=== PATIENT | female | born 1995 | race African-American/Black ===

== ENCOUNTER 2017-04-17 10:04 | Observation (INO) | payer MEDICAID, OTHER ==
[2017-04-17 07:56] VITALS: RESP 19; O2SAT 99
[2017-04-17] MEDS ORDERED: ACETAMINOPHEN 325 MG PO PRN (11:08)
[2017-04-17] MEDS ORDERED: SODIUM CHLORIDE 0.9% FLUSH 10 ML SOL IV PRN (11:21)
[2017-04-17] MEDS ORDERED: MEPIVACAINE HCL 1% MPF 30 ML SOL INFIL PRN (11:21)
[2017-04-17] MEDS ORDERED: LACTATED RINGERS 1,000 ML IV PRN (11:21)
[2017-04-17] MEDS ORDERED: OXYTOCIN 10000 MU/ML SOL IM PRN (11:21)
[2017-04-17] MEDS ORDERED: FENTANYL 100MCG/2ML SOL IV PRN (11:21)
[2017-04-17] MEDS ORDERED: METHYLERGONOVINE MALEATE 0.2 MG/ML SOL IM PRN (11:21)
[2017-04-17] MEDS ORDERED: CARBOPROST 250 MCG/ML SOL IM PRN (11:21)
[2017-04-17] MEDS ORDERED: SODIUM CHLORIDE 0.9% FLUSH 10 ML SOL IV SCH (11:30)
[2017-04-17 11:40] LABS: APPEARANCE,URINE Clear; BILIRUBIN,URINE NEGATIVE (NEGATIVE); COLOR,URINE Yellow; GLUCOSE, URINE (UA) NEGATIVE (NEGATIVE); KETONES,URINE NEGATIVE (NEGATIVE); LEUKOCYTE ESTERASE ,URINE NEGATIVE (NEGATIVE); NITRATE,URINE NEGATIVE (NEGATIVE); OCCULT BLOOD,URINE TRACE INTACT (NEG-TRACE); PH,URINE 5.5; UROBILINOGEN,URINE 0.2 (0.2-1.0 EU)
[2017-04-17 11:47] LABS: RBC,URINE 0-2 (0-3AV/HPF); WBC,URINE 0-2 (0-5AV/HPF)
[2017-04-17 14:28] VITALS: BP 117/71; PULSE 87; TEMP 97.8
== END 2017-04-17 15:10 | disposition home or self-care (01) ==
LOC: OB 10:04
PROVIDERS: ADMIT Family Medicine; ATTEND Family Medicine
DX: Z34.83 Encounter for supervision of other normal pregnancy, third trimester (principal); Z3A.38 38 weeks gestation of pregnancy
CPT/HCPCS: 51798; 59025; 81001

== ENCOUNTER 2017-04-29 04:50 | Inpatient (IN) | payer OTHER ==
[2017-04-29] MEDS ORDERED: MEPIVACAINE HCL 1% MPF 30 ML SOL INFIL PRN (07:02)
[2017-04-29] MEDS ORDERED: FENTANYL 100MCG/2ML SOL IV PRN (07:02)
[2017-04-29] MEDS ORDERED: LACTATED RINGERS 1,000 ML IV PRN (07:02)
[2017-04-29] MEDS ORDERED: METHYLERGONOVINE MALEATE 0.2 MG/ML SOL IM PRN (07:02)
[2017-04-29] MEDS ORDERED: CARBOPROST 250 MCG/ML SOL IM PRN (07:02)
[2017-04-29] MEDS ORDERED: SODIUM CHLORIDE 0.9% FLUSH 10 ML SOL IV PRN (07:02)
[2017-04-29] MEDS ORDERED: OXYTOCIN 10000 MU/ML SOL IM PRN (07:02)
[2017-04-29] MEDS: SODIUM CHLORIDE 0.9% FLUSH 10 ML SOL IV SCH ×3 (07:15→22:30)
[2017-04-29 07:49] LABS: BASOPHILS % (AUTO) 1 % (0-3); EOSINOPHILS % (AUTO) 1 % (0-9); HEMATOCRIT 32 % (35-47); MEAN CORPUSCULAR HGB CONC 35.2 gm/dl (32.0-36.0); MEAN CORPUSCULAR VOLUME 82 fL (81-99); MONOCYTES % (AUTO) 7.1 % (0-12); NEUTROPHILS % (AUTO) 68.9 % (37-80)
[2017-04-29] MEDS ORDERED: MORPHINE SULFATE 10 MG/ML SOL IV ONE (20:56)
[2017-04-29] MEDS ORDERED: MORPHINE SULFATE 10 MG/ML SOL IM ONE (20:58)
[2017-04-29] MEDS ORDERED: MORPHINE SULFATE 10 MG/ML SOL ONE ×2 (22:19→22:20)
[2017-04-30] MEDS: SODIUM CHLORIDE 0.9% FLUSH 10 ML SOL IV SCH ×3 (08:05→22:22)
[2017-04-30] MEDS ORDERED: TERBUTALINE SULFATE 1 MG/ML SOL SC PRN (08:42)
[2017-04-30] MEDS ORDERED: OXYTOCIN 10000 MU/ML SOL ONE (09:06)
[2017-04-30] MEDS ORDERED: LACTATED RINGERS 1,000 ML ONE (09:06)
[2017-04-30] MEDS: OXYTOCIN 10000 MU/ML 20,000 MU in LACTATED RINGERS 1,000 ML IV SCH (09:39)
[2017-04-30] MEDS: LACTATED RINGERS 1,000 ML IV SCH ×4 (09:41→18:33)
[2017-04-30] MEDS ORDERED: DIPHENHYDRAMINE 50 MG/ML SOL IV PRN (16:54)
[2017-04-30] MEDS ORDERED: EPHEDRINE SULFATE 50 MG/ML SOL IV PRN (16:54)
[2017-04-30] MEDS ORDERED: NALOXONE HYDROCHLORIDE 0.4 MG/ML SOL IV PRN (16:54)
[2017-04-30] MEDS ORDERED: NALBUPHINE HCL 20 MG/ML SOL IV PRN (16:54)
[2017-04-30] MEDS ORDERED: ROPIVACAINE HYDROCHLORIDE 5 MG/ML SOL ONE (17:15)
[2017-04-30] MEDS ORDERED: FENTANYL 250 MCG/ 5ML SOL ONE (17:15)
[2017-04-30] MEDS ORDERED: ONDANSETRON HCL 4 MG/2 ML SOL IV PRN (23:35)
[2017-05-01] MEDS: LACTATED RINGERS 1,000 ML IV SCH ×7 (02:04→21:21)
[2017-05-01] MEDS: SODIUM CHLORIDE 0.9% FLUSH 10 ML SOL IV SCH ×2 (07:25→19:49)
[2017-05-01] MEDS ORDERED: LACTATED RINGERS 1,000 ML ONE (10:06)
[2017-05-01] MEDS ORDERED: OXYTOCIN 10000 MU/ML SOL ONE ×2 (10:06→18:32)
[2017-05-01] MEDS: OXYTOCIN 10000 MU/ML 20,000 MU in LACTATED RINGERS 1,000 ML IV SCH (10:30)
[2017-05-01] MEDS ORDERED: FENTANYL 250 MCG/ 5ML SOL ONE (16:29)
[2017-05-01] MEDS ORDERED: ROPIVACAINE HYDROCHLORIDE 5 MG/ML SOL ONE (16:29)
[2017-05-01] MEDS ORDERED: LIDOCAINE HCL 2% MPF SOL ONE ×2 (17:12→18:21)
[2017-05-01] MEDS ORDERED: CEFAZOLIN SODIUM 1 GM PDS IVP ONE (17:14)
[2017-05-01] MEDS ORDERED: CITRIC ACID/SODIUM CITRATE SOL PO ONE (17:14)
[2017-05-01] MEDS ORDERED: ONDANSETRON HCL 4 MG/2 ML SOL ONE (17:26)
[2017-05-01] MEDS ORDERED: CEFAZOLIN SODIUM 1 GM PDS ONE (17:34)
[2017-05-01] MEDS ORDERED: PHENYLEPHRINE HYDROCHLORIDE 10 MG/ML SOL ONE (17:48)
[2017-05-01] MEDS ORDERED: LACTATED RINGERS 1,000 ML with OXYTOCIN 10000 MU/ML 20 MU IV ONE ×2 (17:48→18:37)
[2017-05-01] MEDS ORDERED: SODIUM BICARBONATE 4.2% (PED) 0.5 MEQ/ML SOL IV ONE (17:49)
[2017-05-01] MEDS ORDERED: MORPHINE SULFATE 0.5 MG/ML SOL ONE (17:55)
[2017-05-01 17:57] LABS: ABO O; ANTIBODY SCREEN Negative; RH TYPE Positive
[2017-05-01] MEDS ORDERED: FENTANYL 100MCG/2ML SOL ONE ×2 (18:22→19:27)
[2017-05-01] MEDS ORDERED: KETOROLAC TROMETHAMINE 30 MG/ML SOL ONE (18:51)
[2017-05-01] MEDS ORDERED: ONDANSETRON HCL 4 MG/2 ML SOL IV PRN (19:02)
[2017-05-01] MEDS ORDERED: METHYLERGONOVINE MALEATE 0.2 MG TAB PO PRN (19:02)
[2017-05-01] MEDS ORDERED: BENZOCAINE/MENTHOL 1 SPR TOP PRN (19:02)
[2017-05-01] MEDS ORDERED: FLEET ENEMA PR PRN (19:02)
[2017-05-01] MEDS ORDERED: TEMAZEPAM 15MG 15 MG CAP PO PRN (19:02)
[2017-05-01] MEDS ORDERED: BISACODYL 10 MG SUP PR PRN (19:02)
[2017-05-01] MEDS ORDERED: WITCH HAZEL 1 EA PAD TOP PRN (19:02)
[2017-05-01] MEDS ORDERED: HYDROMORPHONE 1 MG/ML SYRINGE ONE (19:09)
[2017-05-01] MEDS ORDERED: BUPIVACAINE/EPI 0.5% 10 ML SOL INFIL ONE (19:47)
[2017-05-01] MEDS: APAP/HYDROCODONE 325/5 TAB PO PRN (21:21)
[2017-05-01] MEDS: DOCUSATE SODIUM 100 MG SGL PO SCH (21:21)
[2017-05-01] MEDS ORDERED: CEFAZOLIN (PREMIX) 1 GM 1 GM/50 ML SOL IV SCH (23:14)
[2017-05-01] MEDS: DIPHENHYDRAMINE 25 MG CAP PO PRN (23:31)
[2017-05-02] MEDS: DIPHENHYDRAMINE 25 MG CAP PO PRN (00:34)
[2017-05-02] MEDS ORDERED: KETOROLAC TROMETHAMINE 30 MG/ML SOL ONE ×2 (01:46→08:26)
[2017-05-02] MEDS: KETOROLAC TROMETHAMINE 30 MG/ML SOL IV PRN ×2 (01:49→08:30)
[2017-05-02] MEDS ORDERED: CEFAZOLIN (PREMIX) 1 GM 1 GM/50 ML SOL IV ONE (02:43)
[2017-05-02] MEDS: LACTATED RINGERS 1,000 ML IV SCH ×3 (02:47→17:34)
[2017-05-02] MEDS: APAP/HYDROCODONE 325/5 TAB PO PRN ×4 (06:01→20:26)
[2017-05-02] MEDS: SODIUM CHLORIDE 0.9% FLUSH 10 ML SOL IV SCH (08:31)
[2017-05-02] MEDS: DOCUSATE SODIUM 100 MG SGL PO SCH ×2 (09:07→20:26)
[2017-05-02] MEDS: MULTIVITAMIN2 1 EA TAB PO SCH (09:12)
[2017-05-02] MEDS: FERROUS SULFATE 325 MG TAB PO SCH (09:12)
[2017-05-02] MEDS: FOLIC ACID 1 MG TAB PO SCH (09:12)
[2017-05-02] MEDS: IBUPROFEN 600 MG TAB PO PRN ×2 (14:59→21:29)
[2017-05-03] MEDS: APAP/HYDROCODONE 325/5 TAB PO PRN ×5 (00:11→20:53)
[2017-05-03] MEDS: IBUPROFEN 600 MG TAB PO PRN ×3 (03:27→18:55)
[2017-05-03] MEDS: DOCUSATE SODIUM 100 MG SGL PO SCH ×2 (08:42→20:53)
[2017-05-03] MEDS: FOLIC ACID 1 MG TAB PO SCH (08:43)
[2017-05-03] MEDS: FERROUS SULFATE 325 MG TAB PO SCH (08:43)
[2017-05-03] MEDS: MULTIVITAMIN2 1 EA TAB PO SCH (08:45)
[2017-05-03 11:43] VITALS: RESP 16
[2017-05-04] MEDS: APAP/HYDROCODONE 325/5 TAB PO PRN ×3 (03:15→13:27)
[2017-05-04] MEDS: IBUPROFEN 600 MG TAB PO PRN (06:19)
[2017-05-04] MEDS: FOLIC ACID 1 MG TAB PO SCH (08:29)
[2017-05-04] MEDS: FERROUS SULFATE 325 MG TAB PO SCH (08:29)
[2017-05-04] MEDS: MULTIVITAMIN2 1 EA TAB PO SCH (08:29)
[2017-05-04] MEDS: DOCUSATE SODIUM 100 MG SGL PO SCH (08:29)
[2017-05-04 09:27] VITALS: BP 112/69; PULSE 100; TEMP 97.7; O2SAT 97
== END 2017-05-04 17:20 | disposition home or self-care (01) | DRG 540 ==
LOC: OB 04:50 → OBSVTOIN 04:50 → OB 05-01 20:17
PROVIDERS: ADMIT Family Medicine; ATTEND Family Medicine
PROC: 10907ZC Drainage of Amniotic Fluid, Therapeutic from Products of Conception, Via Natural or Artificial Opening (ICD-10-PCS; 2017-05-01)
PROC: 10D00Z1 Extraction of Products of Conception, Low, Open Approach (ICD-10-PCS; principal; 2017-05-01 17:15)
DX: O62.1 Secondary uterine inertia (principal); Z37.0 Single live birth; Z3A.40 40 weeks gestation of pregnancy
CPT/HCPCS: 36415; 59025; 85018; 85025; 86850; 86900; 86901; 94762; 99070; J0670; J0690; J1885; J2270; J2274; J2405; J2590; J2795; J3010; J3105; A6402; J1170

== ENCOUNTER 2018-04-09 11:28 | Emergency (ER) | payer OTHER ==
[2018-04-09 11:37] VITALS: BP 143/86; PULSE 76; RESP 20; TEMP 97.2; O2SAT 100
== END 2018-04-09 12:09 | disposition home or self-care (01) ==
LOC: ED 11:28
DX: J06.9 Acute upper respiratory infection, unspecified (principal); R06.02 Shortness of breath; R07.89 Other chest pain
CPT/HCPCS: 99282

== ENCOUNTER 2018-07-05 19:58 | Emergency (ER) | payer OTHER ==
[2018-07-05 20:27] VITALS: BP 120/77; PULSE 77; RESP 18; TEMP 97.9; O2SAT 97
[2018-07-05 20:50] LABS: BASOPHILS % (AUTO) 0 % (0-3); EOSINOPHILS % (AUTO) 2 % (0-9); HEMATOCRIT 38 % (35-47); HEMOGLOBIN 12.9 gm/dl (12.0-15.5); LYMPHOCYTES % (AUTO) 24.8 % (10-50); MEAN CORPUSCULAR HEMOGLOBIN 28.5 pg (27.0-32.0); MEAN CORPUSCULAR HGB CONC 33.9 gm/dl (32.0-36.0); MEAN CORPUSCULAR VOLUME 84 fL (81-99); MONOCYTES % (AUTO) 5.5 % (0-12); NEUTROPHILS % (AUTO) 67.2 % (37-80)
[2018-07-05 21:08] LABS: ALBUMIN 3.8 gm/dl (3.4-5.0); BILIRUBIN,TOTAL 0.3 mg/dl (0.2-1.0); CALCIUM 8.7 mg/dl (8.5-10.1); CARBON DIOXIDE 29.8 mEq/L (21-32); CREATININE 0.82 mg/dl (0.60-1.00); POTASSIUM 4.2 mMol/L (3.5-5.1); TOTAL PROTEIN 7.4 gm/dl (6.4-8.2)
[2018-07-05] MEDS ORDERED: ONDANSETRON HCL 4 MG TAB PO ONE (21:36)
[2018-07-05] MEDS ORDERED: ONDANSETRON 4 MG ODT ONE (21:41)
== END 2018-07-05 21:24 | disposition home or self-care (01) ==
LOC: ED 19:58
DX: T83.89XA Other specified complication of genitourinary prosthetic devices, implants and grafts, initial encounter (principal)
CPT/HCPCS: 36415; 80053; 85025; 99283; A9270-GY

== ENCOUNTER 2018-10-06 21:04 | Emergency (ER) | payer MEDICAID, OTHER ==
[2018-10-06] MEDS ORDERED: HYDROMORPHONE 1 MG/ML SYRINGE ONE ×2 (21:45→22:16)
[2018-10-06] MEDS ORDERED: MIDAZOLAM 2 MG/2 ML SOL ONE (21:45)
[2018-10-06] MEDS ORDERED: HYDROMORPHONE 1 MG/ML SYRINGE IV ONE (21:50)
[2018-10-06] MEDS ORDERED: MIDAZOLAM 2 MG/2 ML SOL IV ONE ×2 (21:51→22:17)
[2018-10-06] MEDS ORDERED: LIDOCAINE HCL 1% MPF 30 SOL ONE (22:11)
[2018-10-06] MEDS ORDERED: HYDROMORPHONE 1 MG/ML SYRINGE IV PRN (22:17)
[2018-10-07 00:54] VITALS: TEMP 97; O2SAT 100
[2018-10-07 01:01] VITALS: BP 120/70; PULSE 90; RESP 20
== END 2018-10-07 00:01 | disposition home or self-care (01) | DRG 563 ==
LOC: ED 21:04 → SUPCPDRO 21:04 → ED 10-07 00:01
DX: S43.084A Other dislocation of right shoulder joint, initial encounter (principal); Z3A.09 9 weeks gestation of pregnancy
CPT/HCPCS: 23650; 73020; 73030; 96374; 96375; 99283; 99285; J2250; J1170; J2001

== ENCOUNTER 2018-10-07 12:04 | Emergency (ER) | payer MEDICAID, OTHER ==
[2018-10-07 12:15] VITALS: BP 113/57; PULSE 83; RESP 16; TEMP 97.9; O2SAT 99
[2018-10-07] MEDS ORDERED: APAP/OXYCODONE 1 EACH TABLET PO ONE (12:20)
== END 2018-10-07 12:34 | disposition home or self-care (01) | DRG 556 ==
LOC: ED 12:04
DX: M25.511 Pain in right shoulder (principal); Z3A.09 9 weeks gestation of pregnancy
CPT/HCPCS: 99282

== ENCOUNTER 2018-11-09 15:01 | Emergency (ER) | payer MEDICAID, OTHER ==
[2018-11-09 15:35] VITALS: TEMP 98.2
[2018-11-09] MEDS ORDERED: KETOROLAC TROMETHAMINE 30 MG/ML SOL IM ONE (15:39)
[2018-11-09] MEDS ORDERED: ONDANSETRON 4 MG ODT BU ONE (15:39)
[2018-11-09] MEDS ORDERED: ONDANSETRON 4 MG ODT ONE (15:40)
[2018-11-09] MEDS ORDERED: KETOROLAC TROMETHAMINE 30 MG/ML SOL ONE (15:40)
[2018-11-09] MEDS ORDERED: SUMATRIPTAN SUCCINATE 6 MG/0.5 ML SOL SC ONE ×2 (16:08→16:09)
[2018-11-09 19:25] VITALS: BP 128/86; PULSE 58; RESP 16; O2SAT 97
== END 2018-11-09 16:53 | disposition home or self-care (01) | DRG 103 ==
LOC: ED 15:01
DX: G43.909 Migraine, unspecified, not intractable, without status migrainosus (principal)
CPT/HCPCS: 70450; 96372; 99283; 99284; J1885; J3030; A9270-GY

== ENCOUNTER 2019-01-01 08:39 | Emergency (ER) | payer OTHER ==
[2019-01-01 09:15] VITALS: BP 116/76; PULSE 83; RESP 20; TEMP 97.8; O2SAT 99
[2019-01-01 10:35] LABS: BASOPHILS % (AUTO) 1 % (0-3); EOSINOPHILS % (AUTO) 6 % (0-9); HEMATOCRIT 36 % (35-47); HEMOGLOBIN 12.3 gm/dl (12.0-15.5); LYMPHOCYTES % (AUTO) 24.4 % (10-50); MEAN CORPUSCULAR HEMOGLOBIN 28.9 pg (27.0-32.0); MEAN CORPUSCULAR HGB CONC 33.8 gm/dl (32.0-36.0); MEAN CORPUSCULAR VOLUME 86 fL (81-99); MONOCYTES % (AUTO) 5.6 % (0-12); NEUTROPHILS % (AUTO) 63.2 % (37-80)
[2019-01-01 10:36] LABS: ALBUMIN 3.4 gm/dl (3.4-5.0); BILIRUBIN,TOTAL 0.5 mg/dl (0.2-1.0); CALCIUM 8.1 mg/dl (8.5-10.1); CARBON DIOXIDE 29.3 mEq/L (21-32); CREATININE 0.75 mg/dl (0.60-1.00); POTASSIUM 3.9 mMol/L (3.5-5.1); TOTAL PROTEIN 7.4 gm/dl (6.4-8.2)
[2019-01-01 10:46] LABS: LACTIC ACID 0.8 mMol/L (0.0-2.0)
== END 2019-01-01 11:18 | disposition home or self-care (01) | DRG 446 ==
LOC: ED 08:39
DX: K80.50 Calculus of bile duct without cholangitis or cholecystitis without obstruction (principal)
CPT/HCPCS: 36415; 80053; 85025; 99282; 99283

== ENCOUNTER 2019-02-22 12:14 | Emergency (ER) | payer OTHER ==
[2019-02-22] MEDS: SODIUM CHLORIDE 0.9% 1000ML 1,000 ML IV ONE ×2 (12:49→14:02)
[2019-02-22 13:08] LABS: BASOPHILS % (AUTO) 0 % (0-3); EOSINOPHILS % (AUTO) 2 % (0-9); HEMATOCRIT 39 % (35-47); HEMOGLOBIN 13.3 gm/dl (12.0-15.5); LYMPHOCYTES % (AUTO) 30.4 % (10-50); MEAN CORPUSCULAR HEMOGLOBIN 28.6 pg (27.0-32.0); MEAN CORPUSCULAR HGB CONC 33.8 gm/dl (32.0-36.0); MEAN CORPUSCULAR VOLUME 85 fL (81-99); MONOCYTES % (AUTO) 7.7 % (0-12); NEUTROPHILS % (AUTO) 59.3 % (37-80)
[2019-02-22 13:19] VITALS: BP 114/71; PULSE 66; RESP 20; TEMP 98.1; O2SAT 100
[2019-02-22 13:22] LABS: ALBUMIN 3.6 gm/dl (3.4-5.0); BILIRUBIN,TOTAL 0.3 mg/dl (0.2-1.0); CALCIUM 8.2 mg/dl (8.5-10.1); CARBON DIOXIDE 27.1 mEq/L (21-32); CREATININE 0.82 mg/dl (0.60-1.00); POTASSIUM 4.2 mMol/L (3.5-5.1); TOTAL PROTEIN 7.3 gm/dl (6.4-8.2)
[2019-02-22 13:28] LABS: APPEARANCE,URINE Clear; BILIRUBIN,URINE NEGATIVE (NEGATIVE); COLOR,URINE Yellow; GLUCOSE, URINE (UA) NEGATIVE (NEGATIVE); KETONES,URINE NEGATIVE (NEGATIVE); LEUKOCYTE ESTERASE ,URINE NEGATIVE (NEGATIVE); NITRATE,URINE NEGATIVE (NEGATIVE); OCCULT BLOOD,URINE NEGATIVE (NEG-TRACE)
[2019-02-22 13:46] LABS: RBC,URINE 0-1 (0-3AV/HPF)
[2019-02-22 13:47] LABS: BACTERIA TRACE (< 1+); CRYSTALS NEGATIVE (0-3 AVE/HPF)
[2019-02-22] MEDS ORDERED: ONDANSETRON 4 MG ODT BU ONE (14:27)
[2019-02-22] MEDS ORDERED: ONDANSETRON 4 MG ODT ONE (14:28)
== END 2019-02-22 14:30 | disposition home or self-care (01) | DRG 446 ==
LOC: ED 12:14
DX: K80.50 Calculus of bile duct without cholangitis or cholecystitis without obstruction (principal)
CPT/HCPCS: 36415; 80053; 81001; 85025; 93005; 99283; A9270-GY